=== PATIENT | female | born 1975 | race Caucasian/White ===

== ENCOUNTER 2016-08-18 11:16 | Emergency (ER) | payer BC ==
[~2016-08-18] VITALS: Ht 165.1 cm; Wt 86.2 kg
[~2016-08-18 11:16] MED LIST: ALBUTEROL0.09 MG/A2 IH; ASPIRIN ADULT L81 M2 PO; CIPRO500 MG PO; FIORINAL 325 MG1 CAP PO; FLEXERIL10 MG PO; METFORMIN HCL500 MG PO; MOTRIN600 MG PO; NEXIUM I.V.40 MG PO; NEXIUM40 MG PO; NORCO 5-325 TA1 EACH PO; PERCOCET 325 MG1 TA2 PO; PNV-DHA1 SGL PO; TYLENOL W/CODEI1 TA2 PO; VOLTAREN50 M1 PO; ZITHROMAX Z PA250 MG PO
[2016-08-18] MEDS ORDERED: TOPIRAMATE100 M2 PO (11:34)
[2016-08-18] MEDS ORDERED: 'PARAFON FORTE500 M1 PO (13:31)
== END 2016-08-18 13:42 | disposition home or self-care (01) ==
LOC: ED 11:16
DX: G43.909 Migraine, unspecified, not intractable, without status migrainosus (principal); R03.0 Elevated blood-pressure reading, without diagnosis of hypertension; Z88.1 Allergy status to other antibiotic agents; Z79.899 Other long term (current) drug therapy; Z79.82 Long term (current) use of aspirin

== ENCOUNTER 2016-10-08 15:40 | Emergency (ER) | payer BC ==
[~2016-10-08] VITALS: Wt 81.6 kg
[~2016-10-08 15:40] MED LIST changes: +'PARAFON FORTE500 M1 PO; +TOPIRAMATE100 M2 PO
[2016-10-08 16:21] LABS: BASO % 0.3 % (0.0-1.0); EOS # 0.1 10*3/uL (0.0-0.4); EOS % 0.6 % (1.0-4.0); IG # 0.1 10*3/uL (0.0-0.1); LYMPH # 3.1 10*3/uL (1.3-4.4); LYMPH % 25.7 % (27.0-41.0); MEAN CELL VOLUME 87.7 fl (81.0-99.0); MEAN CORPUSCULAR HGB 30.1 pg (27.0-31.0); MEAN CORPUSCULAR HGB CONC 34.3 g/dl (33.0-37.0); MEAN PLATELET VOLUME 9.6 fl (9.6-12.3); MONO # 0.6 10*3/uL (0.1-1.0); MONO % 4.9 % (3.0-9.0); NEUT # 8.1 10*3/uL (2.3-7.9); NEUT % 68.1 % (47.0-73.0); PLATELET COUNT AUTOMATED 306 10*3/uL (130-400); RED BLOOD COUNT 3.99 10*6/uL (4.10-5.10); WHITE BLOOD COUNT 11.9 10*3/uL (4.8-10.8)
[2016-10-08 16:37] LABS: ALBUMIN 3.9 gm/dl (3.1-4.5); ALKALINE PHOSPHATASE 78 U/L (45-117); BILIRUBIN, TOTAL 0.3 mg/dl (0.2-1.0); BUN 9 mg/dl (7-24); CARBON DIOXIDE 20 mmol/L (21-32); CHLORIDE 110 mmol/L (98-107); EST GLOM FILT AFRICAN AMERICAN > 60 ml/min; GLUCOSE 97 mg/dL (65-99); POTASSIUM 3.6 mmol/L (3.5-5.1); SGOT/AST 6 IU/L (3-35); SGPT/ALT 21 U/L (12-78); SODIUM 144 mmol/L (136-145); TOTAL PROTEIN 6.9 gm/dL (6.4-8.2)
[2016-10-08 17:04] LABS: BILIRUBIN NEGATIVE (NEGATIVE); BLOOD 3+ (NEGATIVE); CLARITY SL CLOUDY (CLEAR); COLOR YELLOW (YELLOW); GLUCOSE NEGATIVE (NEGATIVE); KETONE 1+ (NEGATIVE); LEUKO ESTERASE NEGATIVE (NEGATIVE); NITRITE NEGATIVE (NEGATIVE); PROTEIN TRACE (NEGATIVE); UROBILINOGEN 0.2 E.U./dl (0.2-1.0)
[2016-10-08 17:32] LABS: CALCIUM OXALATE CRYSTALS TRACE; MUCOUS TRACE; RBC TNTC rbc/hpf (0-2); URINE REFLEX COMMENT YES (NO)
[2016-10-08] MEDS ORDERED: ZOFRAN ODT4 MG SL (19:58)
[2016-10-08] MEDS ORDERED: Motrin,Rufen800 MG PO (19:58)
[2016-10-08] MEDS ORDERED: HYDROCODONE BIT1 T11 PO (19:58)
== END 2016-10-08 20:46 | disposition home or self-care (01) ==
LOC: ED 15:40
PROVIDERS: Physician Assistant
DX: N20.0 Calculus of kidney (principal); Z88.1 Allergy status to other antibiotic agents; Z79.82 Long term (current) use of aspirin; Z79.899 Other long term (current) drug therapy

== ENCOUNTER → 2016-11-18 | Outpatient (CLI) | payer BC ==
[~2016-11-18] MED LIST changes: +HYDROCODONE BIT1 T11 PO; +Motrin,Rufen800 MG PO; +ZOFRAN ODT4 MG SL
[2016-11-18 08:54] LABS: BASO # 0.1 10*3/uL (0.0-0.1); BASO % 0.7 % (0.0-1.0); EOS # 0.1 10*3/uL (0.0-0.4); EOS % 1.7 % (1.0-4.0); HEMATOCRIT 36.7 % (37.0-47.0); HEMOGLOBIN 11.8 g/dl (12.0-16.0); LYMPH # 2.3 10*3/uL (1.3-4.4); LYMPH % 32.8 % (27.0-41.0); MEAN CORPUSCULAR HGB 29.6 pg (27.0-31.0); MEAN CORPUSCULAR HGB CONC 32.2 g/dl (33.0-37.0); MEAN PLATELET VOLUME 9.3 fl (9.6-12.3); MONO # 0.4 10*3/uL (0.1-1.0); MONO % 4.9 % (3.0-9.0); NEUT # 4.2 10*3/uL (2.3-7.9); NEUT % 59.3 % (47.0-73.0); PLATELET COUNT AUTOMATED 261 10*3/uL (130-400); RED BLOOD COUNT 3.99 10*6/uL (4.10-5.10); RED CELL DISTRI WIDTH 12.8 % (0-14.5); WHITE BLOOD COUNT 7.1 10*3/uL (4.8-10.8)
[2016-11-18 09:26] LABS: CHLORIDE 112 mmol/L (98-107); POTASSIUM 4.3 mmol/L (3.5-5.1); SODIUM 145 mmol/L (136-145)
[2016-11-18 09:42] LABS: ALBUMIN 3.7 gm/dl (3.1-4.5); ALKALINE PHOSPHATASE 56 U/L (45-117); BILIRUBIN, TOTAL 0.3 mg/dl (0.2-1.0); BUN 10 mg/dl (7-24); CARBON DIOXIDE 25 mmol/L (21-32); CHOLESTEROL 171 mg/dL (<200); EST GLOM FILT AFRICAN AMERICAN > 60 ml/min; GLUCOSE 82 mg/dL (65-99); HDL CHOLESTEROL 56 mg/dl (40-60); LDL CHOLESTEROL 89 mg/dL (9-159); SGOT/AST 9 IU/L (3-35); SGPT/ALT 26 U/L (12-78); TOTAL PROTEIN 6.5 gm/dL (6.4-8.2); TRIGLYCERIDES 131 mg/dl (<150); VLDL CHOLESTEROL 26 mg/dL (6-40)
== END | disposition home or self-care (01) ==
LOC: LAB 08:36
PROVIDERS: Internal Medicine
DX: E28.2 Polycystic ovarian syndrome (principal)

== ENCOUNTER 2017-04-04 14:56 | Emergency (ER) | payer BC ==
[~2017-04-04] VITALS: Ht 170.1 cm; Wt 65.8 kg
[2017-04-04 15:26] LABS: BILIRUBIN NEGATIVE (NEGATIVE); BLOOD 1+ (NEGATIVE); CLARITY CLEAR (CLEAR); COLOR YELLOW (YELLOW); GLUCOSE NEGATIVE (NEGATIVE); KETONE 1+ (NEGATIVE); LEUKO ESTERASE TRACE (NEGATIVE); NITRITE NEGATIVE (NEGATIVE); PH 5.5 (5.0-9.0); UROBILINOGEN 0.2 E.U./dl (0.2-1.0)
[2017-04-04 15:47] LABS: BASO % 0.3 % (0.0-1.0); EOS % 0.3 % (1.0-4.0); HEMATOCRIT 32.3 % (37.0-47.0); HEMOGLOBIN 10.8 g/dl (12.0-16.0); LYMPH # 2.3 10*3/uL (1.3-4.4); LYMPH % 22.7 % (27.0-41.0); MEAN CELL VOLUME 89.7 fl (81.0-99.0); MEAN CORPUSCULAR HGB CONC 33.4 g/dl (33.0-37.0); MEAN PLATELET VOLUME 8.5 fl (9.6-12.3); MONO # 0.8 10*3/uL (0.1-1.0); MONO % 7.8 % (3.0-9.0); NEUT # 6.8 10*3/uL (2.3-7.9); NEUT % 68.4 % (47.0-73.0); PLATELET COUNT AUTOMATED 205 10*3/uL (130-400); RED CELL DISTRI WIDTH 12.5 % (0-14.5)
[2017-04-04 15:51] LABS: BACTERIA 1+
[2017-04-04 16:03] LABS: ALBUMIN 3.4 gm/dl (3.1-4.5); ALKALINE PHOSPHATASE 74 U/L (45-117); BUN 12 mg/dl (7-24); CHLORIDE 107 mmol/L (98-107); CREATININE 0.64 mg/dL (0.55-1.02); LIPASE 87 U/L (73-393); POTASSIUM 4.1 mmol/L (3.5-5.1); SGOT/AST 6 IU/L (3-35); SGPT/ALT 16 U/L (12-78); SODIUM 140 mmol/L (136-145); TOTAL PROTEIN 6.5 gm/dL (6.4-8.2)
[2017-04-04] MEDS ORDERED: CIPRO500 MG PO (16:37)
[2017-04-04] MEDS ORDERED: DIFLUCAN150 MG PO (16:45)
== END 2017-04-04 16:54 | disposition home or self-care (01) ==
LOC: ED 14:56
PROVIDERS: Nurse Practitioner Family
DX: N39.0 Urinary tract infection, site not specified (principal); J32.9 Chronic sinusitis, unspecified; G43.909 Migraine, unspecified, not intractable, without status migrainosus; Z87.442 Personal history of urinary calculi; Z79.82 Long term (current) use of aspirin; Z79.899 Other long term (current) drug therapy; Z88.8 Allergy status to other drugs, medicaments and biological substances; Z88.1 Allergy status to other antibiotic agents

== ENCOUNTER → 2017-04-27 | Outpatient (CLI) | payer BC ==
[~2017-04-27] MED LIST changes: +DIFLUCAN150 MG PO
== END | disposition home or self-care (01) ==
LOC: LAB 07:26
DX: K58.0 Irritable bowel syndrome with diarrhea (principal); R63.4 Abnormal weight loss; R10.11 Right upper quadrant pain

== ENCOUNTER → 2017-04-28 | Outpatient (CLI) | payer BC ==
[2017-04-28 08:05] LABS: BASO % 0.4 % (0.0-1.0); EOS # 0.1 10*3/uL (0.0-0.4); EOS % 1.5 % (1.0-4.0); HEMATOCRIT 36.6 % (37.0-47.0); HEMOGLOBIN 11.7 g/dl (12.0-16.0); LYMPH # 2.2 10*3/uL (1.3-4.4); LYMPH % 33.3 % (27.0-41.0); MEAN CELL VOLUME 91.3 fl (81.0-99.0); MEAN CORPUSCULAR HGB 29.2 pg (27.0-31.0); MONO # 0.3 10*3/uL (0.1-1.0); MONO % 4.9 % (3.0-9.0); PLATELET COUNT AUTOMATED 240 10*3/uL (130-400); RED BLOOD COUNT 4.01 10*6/uL (4.10-5.10); RED CELL DISTRI WIDTH 12.5 % (0-14.5); WHITE BLOOD COUNT 6.7 10*3/uL (4.8-10.8)
[2017-04-28 08:32] LABS: ALBUMIN 3.6 gm/dl (3.1-4.5); BUN 12 mg/dl (7-24); CHLORIDE 113 mmol/L (98-107); CHOLESTEROL 146 mg/dL (<200); CREATININE 0.68 mg/dL (0.55-1.02); HDL CHOLESTEROL 51 mg/dl (40-60); LDL CHOLESTEROL 62 mg/dL (9-159); SGOT/AST 4 IU/L (3-35); SGPT/ALT 14 U/L (12-78); SODIUM 143 mmol/L (136-145); TOTAL PROTEIN 6.4 gm/dL (6.4-8.2); TRIGLYCERIDES 167 mg/dl (<150); VLDL CHOLESTEROL 33 mg/dL (6-40)
[2017-04-28 08:34] LABS: ALKALINE PHOSPHATASE 63 U/L (45-117); CEA 0.5 ng/mL
== END | disposition home or self-care (01) ==
LOC: LAB 07:25
PROVIDERS: Internal Medicine
DX: K58.0 Irritable bowel syndrome with diarrhea (principal); R10.11 Right upper quadrant pain; R63.4 Abnormal weight loss; R79.89 Other specified abnormal findings of blood chemistry

== ENCOUNTER → 2017-11-04 | Outpatient (CLI) | payer BC | END | disposition home or self-care (01) | LOC: US 15:00 | DX: M47.896 Other spondylosis, lumbar region (principal); N39.0 Urinary tract infection, site not specified; R10.9 Unspecified abdominal pain ==

== ENCOUNTER → 2018-04-28 | Outpatient (CLI) | payer BC | END | disposition home or self-care (01) | LOC: MAMMO 08:59 | DX: Z12.31 Encounter for screening mammogram for malignant neoplasm of breast (principal) ==

== ENCOUNTER 2018-07-28 19:02 | Inpatient (IN) | payer BC ==
[~2018-07-28] VITALS: Ht 165.1 cm; Wt 69.9 kg
--- NOTE | ~2018-07-28 | EKG ---
[place], [place] ELECTROCARDIOGRAM REPORT NAME: RONNY HERRERA UNIT #: [id number] ROOM: 408 DOCTOR: SHILPA DRAFT REPORT BIRTHDATE: [birth year] [facility] Test Date: 2018-07-29 Test Time: 01:33:46 Pat Name: RONNY HERRERA Department: Room: 408 Gender: F Manager Architecture: Steven Heard : 1975 Requested By: CRISTY MANCILLA Order Number: [id number] Reading MD: Juvenal Marin MD Measurements Intervals [place] Rate: 61 P: 66 IN: 151 QRS: 78 QRSD: 92 T: 74 QT: 438 QTc: 442 Interpretive Statements Sinus rhythm Low voltage, precordial leads Nonspecific T abnrm, anterolateral leads No change from earlier ECG this date Electronically Signed On 07-29-2018 13:40:26 PST by Juvenal Marin MD CM:EKGRPT:ELECTROCARDIOGRAM REPORT [id number] CRISTY MASSEY DRAFT REPORT CRISTY MANCILLA MD
--- NOTE | ~2018-07-28 | CON ---
[place], [place] REPORT OF CONSULTATION NAME: RONNY HERRERA UNIT #: [id number] ROOM: 408 DOCTOR: MARTY SESAY MD BIRTHDATE: [birth year] DOS: 07/29/2018 CARDIOLOGY CONSULTATION REASON FOR CONSULTATION: Precordial chest pain. HISTORY OF PRESENT ILLNESS: The patient is a 43-year-old woman who has no previous history of heart disease. She reports that she was evaluated by the electrical controls assembler at the [facility] 3-4 years ago for palpitations. At that time, she was consuming large amounts of caffeine. She states that she did have a stress test, Holter and echocardiogram, all of which were normal. We have requested those reports. She has had no further heart symptoms since she did decrease her caffeine intake. She was otherwise healthy until yesterday. She was driving around shopping for houses when she developed an aching sensation in her left precordium that radiated across her right chest and into her right shoulder. This persisted for 3-4 hours. It was not associated with sweating, diaphoresis, nausea or dyspnea. She did become concerned; however, that it was not going away and therefore went to the Emergency Room. She was given nitroglycerin, which did not seem to affect the pain at all. She was also given Zofran, morphine and aspirin and her pain did decrease over time. Overnight, it resolved completely and today, she feels well. Her electrocardiogram showed only nonspecific ST and T-wave changes. There were no acute ST elevations or depressions. Her serial troponin levels were all normal. The patient has very few risk factors. She denies any history of hypertension or diabetes. She was a smoker, but quit about 5 years ago. PAST MEDICAL HISTORY: Includes: 1. Polycystic ovary syndrome. The patient is on metformin for this, but has never had diabetes. 2. Gastroesophageal reflux disease. 3. Irritable bowel syndrome. 4. History of kidney stone. 5. Status post cholecystectomy. 6. Multiple sclerosis plaques on a CT scan of her head. The patient states that she has minimal symptoms from this. 7. Former cigarette use. The patient has not smoked for 5 years. 8. No family history of heart disease. FAMILY HISTORY: The patient's parents are both living. There is no family history of a first-degree relative with cardiac disease at an early age. REVIEW OF SYSTEMS: The patient denies diplopia or loss of vision. She denies lightheadedness or syncope. She denies any focal weakness. She denies fevers, chills, sweats or recent weight change. She denies nausea or vomiting. She denies orthopnea or PND. She did have the chest discomfort described above, which has resolved. She denies hemoptysis or hematemesis. She denies any change in bowel or bladder habits. She denies blood in her stools or urine. She denies any skin rashes. She denies any peripheral edema. She has never had a blood clot in her legs. She denies any claudications. Remainder of the [place], [place] REPORT OF CONSULTATION NAME: RONNY HERRERA UNIT #: [id number] ROOM: [facility] DOCTOR: MARTY SESAY MD BIRTHDATE: [birth year] review of systems is negative except as noted above. SOCIAL HISTORY: The patient is . She was a smoker, but quit over 5 years ago. She does not consume significant amounts of alcohol. PHYSICAL EXAMINATION: GENERAL: The patient is a well-nourished white female who is awake, alert and oriented. VITAL SIGNS: Pulse is 79 and regular, blood pressure is 98/62. Her temperature is 99.2. She weighs 69.9 kg and has a body mass index of 25.6. HEENT: Normocephalic and atraumatic. Extraocular muscles are intact. Sclerae are clear. Pupils are equal, round and react to light. The oral mucosa is moist. Tongue is midline. NECK: Supple. She has no jugular distention. Carotids are full. There are no bruits. She has no neck or supraclavicular masses and no thyromegaly. RESPIRATORY: Respirations are unlabored. Her chest is clear to auscultation and percussion. She has no presacral edema or chest wall tenderness. CARDIOVASCULAR: Her heart has a regular rhythm. There are no murmurs, rubs or gallops. The PMI is not displaced. She has no precordial heave, lift or thrill. ABDOMEN: Soft and normally active without masses, organomegaly or bruits. EXTREMITIES: Showed no edema. Peripheral pulses are easily palpated bilaterally. There are no palpable cords in the legs. She has no Homans sign. IMAGING: I reviewed her electrocardiogram. The series of electrocardiograms all show sinus rhythm with nonspecific ST and T-wave changes, but no acute ST elevations or depressions and no Q-waves. LABORATORY DATA: Hemoglobin is 9.8, white count 7000, platelet count 202,000. Sodium is 143, potassium is 4.4, chloride 112, CO2 of 23, BUN 11, creatinine 0.62. Serial troponin levels were all normal. Total cholesterol is 144, LDL 76, HDL 49. IMPRESSIONS: 1. Atypical precordial chest pain. Despite having the pain for several hours, the patient never developed any associated symptoms, did not have any diagnostic electrocardiographic changes and has not shown any elevation in cardiac troponin. The chances of this being a cardiac pain are therefore extremely low. 2. Polycystic ovary disease. 3. Gastroesophageal reflux disease. 4. Irritable bowel syndrome. 5. History of multiple sclerosis with minimal symptoms. 6. Former smoker, abstinent for over 5 years. PLAN: A stress test is probably indicated, but not as an emergency procedure. Since we cannot get a stress test for at least 48 more hours, I think that it would be reasonable for the patient to be discharged to home and have the stress test done as an outpatient. Since she does have nonspecific EKG changes at baseline, I would proceed straight to an imaging test; however, I will ask that the patient walk for the examination and therefore a stress myocardial perfusion [place], [place] REPORT OF CONSULTATION NAME: RONNY HERRERA UNIT #: [id number] ROOM: [facility] DOCTOR: MARTY SESAY MD BIRTHDATE: [birth year] study will be arranged. Further recommendations depend upon the results of the stress test. I thank the hospitalist physicians for asking our advice regarding her care. MARTY SESAY MD CM:CONSTR:REPORT OF CONSULTATION 1543 07/30/18 0443 interface
--- NOTE | ~2018-07-28 | EKG ---
[place], [place] ELECTROCARDIOGRAM REPORT NAME: RONNY HERRERA UNIT #: [id number] ROOM: 408 DOCTOR: SHILPA DRAFT REPORT BIRTHDATE: [birth year] [facility] Test Date: 2018-07-28 Test Time: 22:13:48 Pat Name: RONNY HERRERA Department: Room: 408 Gender: F Substitute Crossing Guard: Steven Heard : 1975 Requested By: CRISTY MANCILLA Order Number: [id number] Reading MD: Juvenal Marin MD Measurements Intervals [place] Rate: 74 P: 62 [place]: 134 QRS: 81 QRSD: 90 T: 79 QT: 410 QTc: 455 Interpretive Statements Sinus rhythm Borderline T abnormalities, anterior leads Electronically Signed On 07-29-2018 13:39:03 PST by Juvenal Marin MD CM:EKGRPT:ELECTROCARDIOGRAM REPORT [id number] 1339 CRISTY MASSEY DRAFT REPORT CRISTY MANCILLA MD
--- NOTE | ~2018-07-28 | EKG ---
[place], [place] ELECTROCARDIOGRAM REPORT NAME: RONNY HERRERA UNIT #: [id number] ROOM: 408 DOCTOR: SHILPA DRAFT REPORT BIRTHDATE: [birth year] [facility] Test Date: 2018-07-28 Test Time: 19:11:18 Pat Name: RONNY HERRERA Department: Room: 408 Gender: F Electric Lineman: Steven Heard : 1975 Requested By: CRISTY MANCILLA Order Number: [id number] Reading MD: Juvenal Marin MD Measurements Intervals [place] Rate: 93 P: 43 NM: 121 QRS: 78 QRSD: 92 T: -73 QT: 360 QTc: 448 Interpretive Statements Sinus rhythm Low voltage, precordial leads Borderline repolarization abnormality Baseline wander in lead(s) V3 Electronically Signed On 07-29-2018 13:38:34 PST by Juvenal Marin MD CM:EKGRPT:ELECTROCARDIOGRAM REPORT 10 1338 CRISTY MASSEY DRAFT REPORT CRISTY MANCILLA MD
[2018-07-28 19:03] VITALS: BP 126/88
[2018-07-28 19:26] LABS: BASO # 0.1 10*3/uL (0.0-0.1); BASO % 0.6 % (0.0-1.0); EOS # 0.1 10*3/uL (0.0-0.4); EOS % 1.2 % (1.0-4.0); HEMATOCRIT 36.5 % (37.0-47.0); HEMOGLOBIN 12.1 g/dl (12.0-16.0); LYMPH # 3.1 10*3/uL (1.3-4.4); LYMPH % 32.6 % (27.0-41.0); MEAN CELL VOLUME 90.1 fl (81.0-99.0); MEAN CORPUSCULAR HGB 29.9 pg (27.0-31.0); MEAN CORPUSCULAR HGB CONC 33.2 g/dl (33.0-37.0); MEAN PLATELET VOLUME 9.1 fl (9.6-12.3); MONO # 0.5 10*3/uL (0.1-1.0); MONO % 5.4 % (3.0-9.0); NEUT # 5.6 10*3/uL (2.3-7.9); NEUT % 59.1 % (47.0-73.0); PLATELET COUNT AUTOMATED 275 10*3/uL (130-400); RED BLOOD COUNT 4.05 10*6/uL (4.10-5.10); RED CELL DISTRI WIDTH 13.1 % (0-14.5); WHITE BLOOD COUNT 9.5 10*3/uL (4.8-10.8)
[2018-07-28 19:37] LABS: ACT PARTIAL THROMBO TIME 24.9 SECONDS (20.8-31.5)
[2018-07-28 19:44] LABS: ALBUMIN 3.5 gm/dl (3.1-4.5); ALKALINE PHOSPHATASE 76 U/L (45-117); BUN 10 mg/dl (7-24); CHLORIDE 108 mmol/L (98-107); CREATININE 0.72 mg/dL (0.55-1.02); POTASSIUM 3.1 mmol/L (3.5-5.1); SGOT/AST 7 IU/L (3-35); SGPT/ALT 18 U/L (12-78); SODIUM 140 mmol/L (136-145); TOTAL PROTEIN 6.9 gm/dL (6.4-8.2)
[2018-07-28 19:45] LABS: TROPONIN I < 0.015 ng/ml (<0.045)
[2018-07-28 19:49] VITALS: BP 122/62
[2018-07-28 20:57] VITALS: BP 108/64
--- NOTE | 2018-07-28 21:15 | NUR ---
PT MEDICATED PER EMAR. CONT PULSE OX IN PLACE. PENDING ADMISSION. WILL CONT TO MONITOR.
[2018-07-28 21:35] VITALS: BP 117/69
--- NOTE | 2018-07-28 21:35 | NUR ---
A 43, admitted to , under the services of LAKEISHA Luu DO with a diagnosis of chest pain . Chief complaint is pain across her chest that radiates into right shoulder blade, constant for the past 3 hours. "stabbing at times" pain is 4 to 5 at admission. Former smoker, quit 5 years ago. last stress test was about four years ago due to palpitations. Patient arrived via bed from ER. Monitor applied. Initial assessment completed. Vital signs taken and recorded. LAKEISHA LUU DO notified of admission to the unit. Orders received. See assessment for past medical history, medications and allergies. Patient and/or family oriented to unit. [facility] visitation policy reviewed. Clothing/patient valuable form completed. REGULO BUTTERFIELD J
[2018-07-28] MEDS ORDERED: ELMIRON100 MG PO (21:48)
--- NOTE | 2018-07-28 22:35 | NUR ---
CALLED ANSWERING SERVICE FOR DR. SESAY AND HIS IS TO CALL BACK.
--- NOTE | 2018-07-28 22:47 | NUR ---
DR. SESAY CALLED BACK IN AND NOTIFIED OF PT. CONDITION, LABS, EKG AND HISTORY. NO NEW ORDERS RECEIVED AND WILL SEE PATIENT IN AM.
[2018-07-29] VITALS: BP 96/61
[2018-07-29] MEDS ORDERED: BUTALBITAL-ASA1 EACH PO
--- NOTE | 2018-07-29 00:02 | NUR ---
DR. VALADEZ NOTIFIED OF HOME MEDICATIONS RECONCILED. NO NEW ORDERS.
[2018-07-29] MEDS ORDERED: ASPIRIN ADULT L81 M1 PO (00:19)
--- NOTE | 2018-07-29 02:45 | NUR ---
24 HR chart check completed.
[2018-07-29 06:36] LABS: BASO % 0.4 % (0.0-1.0); EOS # 0.1 10*3/uL (0.0-0.4); EOS % 1.9 % (1.0-4.0); HEMATOCRIT 30.8 % (37.0-47.0); LYMPH % 42.7 % (27.0-41.0); MEAN CELL VOLUME 91.7 fl (81.0-99.0); MEAN CORPUSCULAR HGB 29.2 pg (27.0-31.0); MEAN CORPUSCULAR HGB CONC 31.8 g/dl (33.0-37.0); MEAN PLATELET VOLUME 9.2 fl (9.6-12.3); MONO # 0.5 10*3/uL (0.1-1.0); MONO % 7.1 % (3.0-9.0); NEUT # 3.3 10*3/uL (2.3-7.9); NEUT % 46.7 % (47.0-73.0); PLATELET COUNT AUTOMATED 202 10*3/uL (130-400); RED BLOOD COUNT 3.36 10*6/uL (4.10-5.10); RED CELL DISTRI WIDTH 13.1 % (0-14.5)
[2018-07-29 06:48] LABS: HEMOGLOBIN 9.8 g/dl (12.0-16.0)
[2018-07-29 07:03] LABS: ALBUMIN 2.8 gm/dl (3.1-4.5); BUN 11 mg/dl (7-24); CHLORIDE 112 mmol/L (98-107); CHOLESTEROL 144 mg/dL (<200); CREATININE 0.62 mg/dL (0.55-1.02); SGOT/AST 5 IU/L (3-35); SGPT/ALT 15 U/L (12-78); SODIUM 143 mmol/L (136-145)
[2018-07-29 07:07] LABS: ALKALINE PHOSPHATASE 63 U/L (45-117); HDL CHOLESTEROL 49 mg/dl (40-60); LDL CHOLESTEROL 76 mg/dL (9-159); PHOSPHOROUS 3.6 mg/dL (2.5-4.9); TOTAL PROTEIN 5.5 gm/dL (6.4-8.2); TRIGLYCERIDES 95 mg/dl (<150); VLDL CHOLESTEROL 19 mg/dL (6-40)
[2018-07-29 07:59] LABS: POTASSIUM 4.4 mmol/L (3.5-5.1)
[2018-07-29 11:08] LABS: VITAMIN D, 25-HYDROXY 34.1 ng/mL (30-100)
--- NOTE | 2018-07-29 11:29 | NUR ---
Medicated with tylenol per prn order for complaints of headache.
[2018-07-29 12:00] VITALS: BP 98/62
--- NOTE | 2018-07-29 12:00 | NUR ---
States that tylenol was only somewhat effective. I asked pt if she wanted anything else for headache, pt states she is going to eat lunch as she did not eat much for breakfast and this may be reason for headache.
--- NOTE | 2018-07-29 13:50 | NUR ---
Fiorinal given per prn order for c/o SNIDER.
--- NOTE | 2018-07-29 14:30 | NUR ---
States medication given earlier for marx effective.
--- NOTE | 2018-07-29 15:29 | NUR ---
Dr. Marin here and examined pt. He is going to order stress test as an outpt and states she is ok to be dc to home and have OP stress test next week. Requesting I notify primary team. Spoke with Dr. Ramirez and notified of this.
--- NOTE | 2018-07-29 15:58 | NUR ---
Discharge instructions reviewed with patient/family. Patient receptive and verbalizes understanding. Follow-up care arranged. Written instructions given to patient/family. Instructed pt of plan for outpt stress test in cardiac rehab. Notified that they will call her on Tuesday. Dr. Marin ordered testing in computer. Explained NPO after midnight the night prior to testing. Verbalized understanding. KIANA MEJIA
--- NOTE | 2018-07-29 16:05 | NUR ---
PT LEFT VIA AMBULATORY.
== END 2018-07-29 16:05 | disposition home or self-care (01) | DRG 313 ==
LOC: ED 19:02 → EDHOLD 21:05 → 4E 21:17
PROVIDERS: Emergency Medicine; Internal Medicine; ADMIT Emergency Medicine
DX: R07.2 Precordial pain (principal); F41.9 Anxiety disorder, unspecified; K21.9 Gastro-esophageal reflux disease without esophagitis; E87.6 Hypokalemia; E87.8 Other disorders of electrolyte and fluid balance, not elsewhere classified; R73.9 Hyperglycemia, unspecified; G35 Multiple sclerosis; E28.2 Polycystic ovarian syndrome; N30.10 Interstitial cystitis (chronic) without hematuria; K58.0 Irritable bowel syndrome with diarrhea; M50.20 Other cervical disc displacement, unspecified cervical region; G43.909 Migraine, unspecified, not intractable, without status migrainosus; Z87.891 Personal history of nicotine dependence; Z88.8 Allergy status to other drugs, medicaments and biological substances; Z79.82 Long term (current) use of aspirin; Z79.899 Other long term (current) drug therapy; Z82.49 Family history of ischemic heart disease and other diseases of the circulatory system; Z87.440 Personal history of urinary (tract) infections; Z87.442 Personal history of urinary calculi; Z90.49 Acquired absence of other specified parts of digestive tract; Z98.1 Arthrodesis status